=== PATIENT | female | born 1960 ===

== ENCOUNTER 2017-12-13 00:29 | Day surgery (SDC) | payer OTHER ==
[~2017-12-13] VITALS: Ht 170.2 cm; Wt 75.3 kg
[2017-12-13] VITALS (8 sets, daily range): BP systolic 102–127; BP diastolic 56–84
[~2017-12-13 00:29] MED LIST: AMLO-96 PO; GOLYTE PO
[2017-12-13] MEDS ORDERED: LIDOCAINE/SOD BICARB 8.4% SYR ID ONE (07:40)
[2017-12-13] MEDS ORDERED: NORMOSOL R SOLN(*) 1000 ML BAG 1,000 ML IV PRN (07:40)
[2017-12-13] MEDS ORDERED: PROPOFOL EMUL(*) 10MG/ML 20 ML 40 ML ONE (08:51)
[2017-12-13] MEDS ORDERED: LIDOCAINE MPF 1% 5 ML VIAL ONE (08:51)
--- NOTE | 2017-12-13 09:21 | Short(Outpt) Discharge Summary ---
Discharge Summary Reason for Hosp/Final Diag: (1) History of colon polyps Status: Chronic Hospital Course & Plan: Colonoscopy with polypectomy x4 completed without problems. (2) Family history of malignant neoplasm of gastrointestinal tract Departure Discharge to: Home, Self Care Discharge Instructions Home Meds Active Scripts Peg/Electrolytes (GOLYTELY SOLUTION) 4,000 Ml Soln, 1 GAL PO ONCE, #1 GAL 0 Refills Prov:YUN BOSCH MD 11/14/17 Reported Medications Amlodipine Besylate (AMLODIPINE BESYLATE) 5 Mg Tablet, 1.5 TAB PO QDAY, TAB 11/14/17 Diet: Regular Activity: As Tolerated Special Instructions: Your colonoscopy was completed without any problems and your prep was excellent (Good Job!!). I removed 4 polyps from your colon and they were sent to pathology. My office will call you in the next week or two and let you know what the polyps are and when your next colonoscopy should be (either 3 or 5 years depending on what all the polyps are). YUN BOSCH MD Dec 13, 2017 09:21
== END 2017-12-13 10:15 | disposition home or self-care (01) ==
LOC: OR 00:29
PROVIDERS: ATTEND Surgery
DX: Z12.11 Encounter for screening for malignant neoplasm of colon (principal); D12.4 Benign neoplasm of descending colon; D12.5 Benign neoplasm of sigmoid colon; D12.3 Benign neoplasm of transverse colon; Z86.010 Personal history of colon polyps
CPT/HCPCS: 00811; 45380; 45385; 88305; J2001; J2704